=== PATIENT | female | born 1960 | race Two or more races ===

== ENCOUNTER 2018-08-17 15:25 | Emergency (ER) | payer SELFPAY ==
[~2018-08-17] VITALS: Ht 154.9 cm; Wt 59.0 kg
[2018-08-17 19:10] VITALS: BP 147/79
[2018-08-17] MEDS ORDERED: HYDROcodone-ACET 10/325MG TAB PO ONE (19:45)
== END 2018-08-17 20:11 | disposition home or self-care (01) ==
LOC: ER 15:31
DX: S32.9XXA Fracture of unspecified parts of lumbosacral spine and pelvis, initial encounter for closed fracture (principal); I12.9 Hypertensive chronic kidney disease with stage 1 through stage 4 chronic kidney disease, or unspecified chronic kidney disease; N18.9 Chronic kidney disease, unspecified; W19.XXXA Unspecified fall, initial encounter; Y93.89 Activity, other specified; Y99.8 Other external cause status; Y92.89 Other specified places as the place of occurrence of the external cause
CPT/HCPCS: 70450; 71045; 72192